=== PATIENT | female | born 1960 | race Caucasian/White ===

== ENCOUNTER 2019-10-26 08:19 | Emergency (ER) | payer OTHER, SELFPAY ==
[2019-10-26 08:31] VITALS: BP 146/88; PULSE 79; RESP 16; TEMP 36.6; O2SAT 100
--- NOTE | 2019-10-26 09:15 | ED.SKABFB ---
HPI - Skin/Abscess/Foreign Bdy General Chief complaint: Skin/Abscess/Foreign Body Stated complaint: ABSCESS Source: patient and RN notes reviewed Mode of arrival: ambulatory Limitations: no limitations History of Present Illness HPI narrative: Is a 59-year-old female that presented to the urgent care today with complaints of pain to the back of her head where abscess was located. Patient noted that the abscess developed within the last 2 to 3 days and she took some oral antibiotics that she had at home cephalexin without relief. Patient is here today for incision and drainage of the abscess . Patient did not that the abscess caused a great amount of pain patient and she was unable to lie on her hand due to the abscess. Today we will complete a incision and drainage of the site with antibiotics to prevent infection. the patient denies SOB, CP, palpitation, extremity numbness, lightheadedness, dizziness, constipation, diarrhea, chills, or fever. MD complaint: other (Abscess) Location: head Related Data Home Medications Medication Instructions Recorded Confirmed aspirin 81 mg tablet,delayed 81 mg PO DAILY 01/17/19 06/27/19 release calcium citrate 315 mg-vitamin D3 1 tablet PO DAILY tablet 01/17/19 06/27/19 5 mcg (200 unit) tablet cetirizine 10 mg capsule 10 mg PO DAILY 01/17/19 06/27/19 magnesium oxide 500 mg capsule 500 mg PO DAILY 01/17/19 06/27/19 [id number] 1 tablet PO DAILY 01/17/19 06/27/19 Allergies Allergy/AdvReac Type Severity Reaction Status Date / Time DURABOND Allergy Severe REDNESS,BLISTERY Uncoded 02/01/14 09:59 RASH Review of Systems Review of Systems: Narrative: CONSTITUTIONAL: Denies fever, chills, sweats. EYES: Denies visual changes, redness, discharge. ENT: Denies rhinorrhea, congestion, sore throat, otalgia. CARDIOVASCULAR: Denies chest pain, palpitations, edema. RESPIRATORY: Denies dyspnea, wheezing, cough GASTROINTESTINAL: Denies abdominal pain, nausea, vomiting, diarrhea. GENITOURINARY: Denies dysuria, hematuria, abnormal discharge SKIN: Painful abscess to back of head MUSCULOSKELETAL: Denies acute back pain, joint pain, or myalgia. NEUROLOGIC: Denies numbness, or focal weakness. PSYCHIATRIC: Denies anxiety or depression. [facility] Social History Social History Smoking status: Never smoker Second hand tobacco smoke exposure: No Alcohol intake: current Exam Narrative: Exam Narrative: GENERAL: This is a well-nourished, well-developed patient, in no apparent distress. HEAD: normocephalic, atraumatic. EYES: PERRL. Sclera clear/white. Vision is grossly intact. EARS: External ears normal, auditory canals clear and without drainage, TMs normal without perforation. Hearing grossly intact. NOSE: External nose normal with no obvious nasal discharge, nares without redness, no rhinorrhea. THROAT: Mucous membranes moist, posterior pharynx clear. NECK: Neck supple, non-tender without lymphadenopathy, masses or thyromegaly. CARDIOVASCULAR: Regular rate and rhythm without murmurs, gallops, or rubs. RESPIRATORY: Clear to auscultation. Breath sounds equal bilaterally. No wheezes, rales, or rhonchi. GASTROINTESTINAL: Abdomen soft, non-tender, nondistended. Bowel sounds are active. No hepato-splenomegaly, or palpable masses. No guarding. SKIN: Edematous ,erythematous abscess to the occipital area of the head NEURO: awake, alert, and oriented to person, place and time. There were no obvious focal neurologic abnormalities. Steady gait EXTREMITIES: Normal range of motion. No edema. No calf tenderness. Negative Homans sign bilaterally. BACK: Nontender without deformity or crepitance. No flank tenderness. Course Vital Signs Vital signs: Vital Signs Temperature 97.8 F 10/26/19 08:31 Pulse Rate 79 10/26/19 08:31 Respiratory Rate 16 10/26/19 08:31 Blood Pressure 146/88 H 10/26/19 08:31 Pulse Oximetry 100 10/26/19 08:31
== END 2019-10-26 09:22 | disposition home or self-care (01) ==
PROVIDERS: Emergency Provider Nurse Practitioner; PCP Internal Medicine
DX: L02.811 Cutaneous abscess of head [any part, except face] (principal); Z79.82 Long term (current) use of aspirin
CPT/HCPCS: 10060; 99213; G0463